=== PATIENT | male | born 1985 | race Caucasian/White ===

== ENCOUNTER 2017-01-12 00:43 | Emergency (ER) | payer MEDICAID | END 2017-01-12 02:10 | disposition home or self-care (01) | LOC: D.ER 00:43 | DX: S40.022A Contusion of left upper arm, initial encounter (principal); V09.9XXA Pedestrian injured in unspecified transport accident, initial encounter; Y93.89 Activity, other specified; Y92.89 Other specified places as the place of occurrence of the external cause; S63.502A Unspecified sprain of left wrist, initial encounter; S29.012A Strain of muscle and tendon of back wall of thorax, initial encounter; F32.9 Major depressive disorder, single episode, unspecified; J45.909 Unspecified asthma, uncomplicated; M54.2 Cervicalgia ==

== ENCOUNTER 2017-01-24 17:35 | Emergency (ER) | payer MEDICAID | END 2017-01-24 21:35 | disposition home or self-care (01) | LOC: D.ER 17:35 | DX: M25.571 Pain in right ankle and joints of right foot (principal); M25.531 Pain in right wrist; F17.200 Nicotine dependence, unspecified, uncomplicated ==

== ENCOUNTER 2017-04-08 21:42 | Emergency (ER) | payer MEDICAID | END 2017-04-09 00:17 | disposition home or self-care (01) | LOC: D.ER 21:42 | DX: H66.91 Otitis media, unspecified, right ear (principal); R09.89 Other specified symptoms and signs involving the circulatory and respiratory systems; R51 Headache; R09.82 Postnasal drip; J34.89 Other specified disorders of nose and nasal sinuses; F17.200 Nicotine dependence, unspecified, uncomplicated ==

== ENCOUNTER 2017-06-17 19:16 | Emergency (ER) | payer MEDICAID | END 2017-06-17 22:10 | disposition home or self-care (01) | LOC: D.ER 19:16 | DX: J03.90 Acute tonsillitis, unspecified (principal); F17.200 Nicotine dependence, unspecified, uncomplicated ==

== ENCOUNTER 2019-05-07 15:14 | Emergency (ER) | payer OTHER ==
[~2019-05-07] VITALS: Ht 185.4 cm; Wt 115.9 kg
[2019-05-07 15:36] VITALS: Ht 185.4 cm; Wt 115.9 kg
[2019-05-07] MEDS ORDERED: TESSALON PERLE100 MG PO (15:37)
[2019-05-07] MEDS ORDERED: ALBUTEROL SULF8.5 GM INH (15:38)
[2019-05-07] MEDS ORDERED: PREDNISONE10 MG PO (15:38)
[2019-05-07] MEDS ORDERED: PROMETHAZINE W473 ML PO (15:39)
[2019-05-07] MEDS ORDERED: ERYTHROCIN STE250 MG PO (15:39)
[2019-05-07 16:12] LABS: HEMATOCRIT 45.9 % (42.0-54.0); HEMOGLOBIN 16.3 g/dL (13.5-17.5); MCH 30.5 pg (26.0-34.0); MCHC 35.5 g/dL (31.0-37.0); MCV 85.8 fL (80.0-100.0); PLATELET COUNT 266 10x3/uL (130-400); RBC 5.35 10x6/uL (4.20-6.10); RDW 13.2 % (11.5-14.5); WBC 23.6 10x3/uL (4.8-10.8)
[2019-05-07 16:25] LABS: ALBUMIN 3.8 g/dL (3.4-5.0); ANION GAP 17.7 mmol/L (8-16); BILIRUBIN - TOTAL 0.27 mg/dL (0.2-1.3); CALCIUM 9.2 mg/dL (8.5-10.1); CARBON DIOXIDE 21.3 mmol/L (21.0-32.0); CREATININE - SERUM 1.4 mg/dL (0.6-1.3); MAGNESIUM - SERUM 2.3 mg/dL (1.8-2.4); PROTEIN - SERUM 7.9 g/dL (6.4-8.2)
[2019-05-07 16:38] LABS: LYMPHOCYTES 5 % (15-50); MONOCYTES 4 % (2-11); NEUTROPHILS 91 % (40-80); PLATELET ESTIMATE NORMAL
[2019-05-07 16:39] LABS: ROULEAUX OCC; TEAR DROP CELLS 1+
[2019-05-07 18:25] LABS: APPEARANCE CLEAR (CLEAR); BILIRUBIN NEGATIVE (NEGATIVE); COLOR YELLOW (YELLOW); GLUCOSE NEGATIVE (NEGATIVE); KETONE NEGATIVE (NEGATIVE); NITRITE NEGATIVE (NEGATIVE); PROTEIN TRACE mg/dL (NEGATIVE); UROBILINOGEN NORMAL (NORMAL)
[2019-05-07 18:27] LABS: BACTERIA FEW /hpf (NONE SEEN); MUCUS <1+ /lpf (NONE SEEN); RED CELLS - URINE 0-5 /hpf (0-5); WHITE CELLS - URINE 0-5 /hpf (0-5)
[2019-05-07 18:44] LABS: UDS - AMPHET NEGATIVE QUAL (NEGATIVE); UDS - BARB NEGATIVE QUAL (NEGATIVE); UDS - BENZO NEGATIVE QUAL (NEGATIVE); UDS - COCAINE NEGATIVE QUAL (NEGATIVE); UDS - OPIATE NEGATIVE QUAL (NEGATIVE); UDS - PCP NEGATIVE QUAL (NEGATIVE); UDS - THC POSITIVE QUAL (NEGATIVE)
[2019-05-07] MEDS ORDERED: BUPROPION HCL75 MG PO (18:59)
[2019-05-07 21:36] VITALS: BP 125/85
[2019-05-12 16:08] LABS: CHLAMYDIA TRACHOMATIS, NAA Negative (Negative)
== END 2019-05-07 23:42 | disposition home or self-care (01) ==
LOC: D.ER 15:14
PROVIDERS: Family Medicine
DX: J01.90 Acute sinusitis, unspecified (principal); J06.9 Acute upper respiratory infection, unspecified

== ENCOUNTER 2019-05-14 09:36 | Emergency (ER) | payer OTHER ==
[~2019-05-14] VITALS: Ht 185.4 cm; Wt 115.9 kg
[~2019-05-14 09:36] MED LIST: ALBUTEROL SULF8.5 GM INH; BUPROPION HCL75 MG PO; ERYTHROCIN STE250 MG PO; PREDNISONE10 MG PO; PROMETHAZINE W473 ML PO; TESSALON PERLE100 MG PO
[2019-05-14 09:42] VITALS: Ht 185.4 cm; Wt 115.9 kg
[2019-05-14 10:30] LABS: ALBUMIN 3.8 g/dL (3.4-5.0); ALKALINE PHOSPHATASE 89 U/L (46-116); ALT (SGPT) 55 U/L (10-68); BILIRUBIN - TOTAL 0.58 mg/dL (0.2-1.3); CALC OSMOLALITY 274 mosm/kg (275-300); CALCIUM 8.8 mg/dL (8.5-10.1); CARBON DIOXIDE 25.2 mmol/L (21.0-32.0); CHLORIDE - SERUM 105 mmol/L (98-107); CREATININE - SERUM 1.1 mg/dL (0.6-1.3); GLUCOSE 101 mg/dL (74-106); PROTEIN - SERUM 7.4 g/dL (6.4-8.2); SODIUM 138 mmol/L (136-145); UREA NITROGEN 10 mg/dL (7-18); eGFR NON AFRICAN AMERICAN 81 mL/min (90-120)
[2019-05-14 11:06] LABS: BASOPHILS 0.2 % (0-2); EOSINOPHILS 2.6 % (0-7); HEMATOCRIT 45.9 % (42.0-54.0); HEMOGLOBIN 16.2 g/dL (13.5-17.5); IMMATURE GRANULOCYTES 0.3 % (0-5); LYMPHOCYTES 25.5 % (15-50); MCH 30.5 pg (26.0-34.0); MCHC 35.3 g/dL (31.0-37.0); MCV 86.4 fL (80.0-100.0); MEAN PLATELET VOLUME 9.6 fL (7.4-10.4); NEUTROPHILS 60.4 % (40-80); PLATELET COUNT 217 10x3/uL (130-400); RBC 5.31 10x6/uL (4.20-6.10); RDW 13.6 % (11.5-14.5); WBC 6.5 10x3/uL (4.8-10.8)
[2019-05-14] MEDS ORDERED: TESSALON PERLE100 MG PO (11:39)
[2019-05-14] MEDS ORDERED: FLUTICASONE PRO16 GM NASAL (11:40)
[2019-05-14 12:06] VITALS: BP 139/85
== END 2019-05-14 12:09 | disposition home or self-care (01) ==
LOC: D.ER 09:36
PROVIDERS: Family Medicine
DX: J01.90 Acute sinusitis, unspecified (principal)

== ENCOUNTER 2019-05-27 12:32 | Emergency (ER) | payer SELFPAY ==
[~2019-05-27] VITALS: Ht 185.4 cm; Wt 115.9 kg
[~2019-05-27 12:32] MED LIST changes: +FLUTICASONE PRO16 GM NASAL
[2019-05-27 12:39] VITALS: Ht 185.4 cm; Wt 115.9 kg
[2019-05-27 13:41] LABS: BASOPHILS 0.4 % (0-2); EOSINOPHILS 4.6 % (0-7); HEMATOCRIT 46.8 % (42.0-54.0); HEMOGLOBIN 16.3 g/dL (13.5-17.5); LYMPHOCYTES 24.3 % (15-50); MCH 30.8 pg (26.0-34.0); MCHC 34.8 g/dL (31.0-37.0); MCV 88.5 fL (80.0-100.0); MEAN PLATELET VOLUME 9.3 fL (7.4-10.4); NEUTROPHILS 59.7 % (40-80); PLATELET COUNT 211 10x3/uL (130-400); RBC 5.29 10x6/uL (4.20-6.10); RDW 13.7 % (11.5-14.5); WBC 5.5 10x3/uL (4.8-10.8)
[2019-05-27 14:02] LABS: ALBUMIN 4.1 g/dL (3.4-5.0); ANION GAP 12.6 mmol/L (8-16); BILIRUBIN - TOTAL 0.32 mg/dL (0.2-1.3); CALCIUM 9.2 mg/dL (8.5-10.1); CARBON DIOXIDE 26.5 mmol/L (21.0-32.0); CREATININE - SERUM 1.2 mg/dL (0.6-1.3); POTASSIUM - SERUM 4.1 mmol/L (3.5-5.1); PROTEIN - SERUM 7.6 g/dL (6.4-8.2)
[2019-05-27] MEDS ORDERED: FLUTICASONE PRO16 GM NASAL (15:16)
[2019-05-27] MEDS ORDERED: ZANAFLEX4 MG PO (15:16)
[2019-05-27] MEDS ORDERED: VOLTAREN75 MG PO (15:16)
[2019-05-27] MEDS ORDERED: ZYRTEC10 MG PO (15:16)
[2019-05-27 16:22] VITALS: BP 130/87
== END 2019-05-27 15:35 | disposition home or self-care (01) ==
LOC: D.ER 12:32
PROVIDERS: Emergency Medicine
DX: J30.9 Allergic rhinitis, unspecified (principal); R05 Cough

== ENCOUNTER 2019-06-16 16:48 | Emergency (ER) | payer SELFPAY ==
[~2019-06-16] VITALS: Ht 185.4 cm; Wt 113.0 kg
[~2019-06-16 16:48] MED LIST changes: +VOLTAREN75 MG PO; +ZANAFLEX4 MG PO; +ZYRTEC10 MG PO
[2019-06-16 16:57] VITALS: Ht 185.4 cm; Wt 113.0 kg
[2019-06-16] MEDS ORDERED: ZANAFLEX4 MG PO (17:57)
[2019-06-16] MEDS ORDERED: ALBUTEROL SULF8.5 GM INH (17:58)
[2019-06-16 18:27] VITALS: BP 120/85
== END 2019-06-16 18:28 | disposition home or self-care (01) ==
LOC: D.ER 16:48
DX: R05 Cough (principal); J30.9 Allergic rhinitis, unspecified

== ENCOUNTER 2019-08-22 11:02 | Emergency (ER) | payer MEDICAID ==
[~2019-08-22] VITALS: Ht 185.4 cm; Wt 102.3 kg
[2019-08-22 11:05] VITALS: Ht 185.4 cm; Wt 102.3 kg
[2019-08-22 12:03] LABS: APPEARANCE CLEAR (CLEAR); BILIRUBIN NEGATIVE (NEGATIVE); COLOR YELLOW (YELLOW); GLUCOSE NEGATIVE (NEGATIVE); KETONE NEGATIVE (NEGATIVE); NITRITE NEGATIVE (NEGATIVE); PROTEIN NEGATIVE (NEGATIVE); UROBILINOGEN NORMAL (NORMAL)
[2019-08-22 12:12] LABS: BASOPHILS 0.2 % (0-2); EOSINOPHILS 2.8 % (0-7); HEMATOCRIT 50.7 % (42.0-54.0); HEMOGLOBIN 17.2 g/dL (13.5-17.5); IMMATURE GRANULOCYTES 0.4 % (0-5); LYMPHOCYTES 8.5 % (15-50); MCH 30.9 pg (26.0-34.0); MCHC 33.9 g/dL (31.0-37.0); MCV 91.2 fL (80.0-100.0); MONOCYTES 7.2 % (2-11); NEUTROPHILS 80.9 % (40-80); RBC 5.56 10x6/uL (4.20-6.10); WBC 16.6 10x3/uL (4.8-10.8)
[2019-08-22 12:14] LABS: PLATELET COUNT 138 10x3/uL (130-400)
[2019-08-22 12:14] LABS: UDS - AMPHET NEGATIVE QUAL (NEGATIVE); UDS - BARB NEGATIVE QUAL (NEGATIVE); UDS - BENZO NEGATIVE QUAL (NEGATIVE); UDS - COCAINE NEGATIVE QUAL (NEGATIVE); UDS - OPIATE NEGATIVE QUAL (NEGATIVE); UDS - PCP NEGATIVE QUAL (NEGATIVE); UDS - THC POSITIVE QUAL (NEGATIVE)
[2019-08-22 12:22] LABS: CALC OSMOLALITY 276 mosm/kg (275-300); CALCIUM 8.9 mg/dL (8.5-10.1); CARBON DIOXIDE 23.2 mmol/L (21.0-32.0); CHLORIDE - SERUM 103 mmol/L (98-107); CREATININE - SERUM 0.9 mg/dL (0.6-1.3); GLUCOSE 109 mg/dL (74-106); SODIUM 139 mmol/L (136-145); UREA NITROGEN 8 mg/dL (7-18); eGFR NON AFRICAN AMERICAN > 90 mL/min (90-120)
[2019-08-22 12:28] LABS: ALBUMIN 3.5 g/dL (3.4-5.0); ALKALINE PHOSPHATASE 97 U/L (46-116); ALT (SGPT) 29 U/L (10-68); BILIRUBIN - TOTAL 0.57 mg/dL (0.2-1.3); MAGNESIUM - SERUM 2.1 mg/dL (1.8-2.4); PROTEIN - SERUM 7.1 g/dL (6.4-8.2)
--- NOTE | 2019-08-22 14:09 | NUR ---
DR. VENCES NOTIFIED AND SITTER ORDERED. SITTER AT BEDSIDE. NOTIFIED CHARGE NURSE AND ATTENDING IN REGARDS TO ASSESSMENT FINDINGS. RESOURCES GIVEN TO PT. AND SAFETY PLAN INITIATED.
[2019-08-22 17:33] VITALS: BP 122/88
== END 2019-08-22 19:35 ==
LOC: D.ER 11:02
PROVIDERS: Emergency Medicine
DX: F31.89 Other bipolar disorder (principal); I10 Essential (primary) hypertension; Z72.0 Tobacco use; J45.909 Unspecified asthma, uncomplicated

== ENCOUNTER 2019-08-30 00:59 | Emergency (ER) | payer MEDICAID ==
[~2019-08-30] VITALS: Ht 185.4 cm; Wt 104.5 kg
[2019-08-30 01:13] VITALS: Ht 185.4 cm; Wt 104.5 kg
[2019-08-30 01:33] LABS: BASOPHILS 0.5 % (0-2); HEMATOCRIT 47.5 % (42.0-54.0); HEMOGLOBIN 16.2 g/dL (13.5-17.5); IMMATURE GRANULOCYTES 0.1 % (0-5); LYMPHOCYTES 21.1 % (15-50); MCH 30.6 pg (26.0-34.0); MCHC 34.1 g/dL (31.0-37.0); MCV 89.6 fL (80.0-100.0); MEAN PLATELET VOLUME 9.2 fL (7.4-10.4); MONOCYTES 10.5 % (2-11); NEUTROPHILS 54.8 % (40-80); RDW 12.7 % (11.5-14.5); WBC 7.8 10x3/uL (4.8-10.8)
[2019-08-30 01:37] LABS: PLATELET COUNT 320 10x3/uL (130-400)
[2019-08-30 01:42] LABS: CALC OSMOLALITY 279 mosm/kg (275-300); CALCIUM 9.2 mg/dL (8.5-10.1); CARBON DIOXIDE 25.6 mmol/L (21.0-32.0); CHLORIDE - SERUM 104 mmol/L (98-107); GLUCOSE 106 mg/dL (74-106); POTASSIUM - SERUM 3.6 mmol/L (3.5-5.1); SODIUM 141 mmol/L (136-145); UREA NITROGEN 10 mg/dL (7-18); eGFR NON AFRICAN AMERICAN 90 mL/min (90-120)
[2019-08-30 01:48] LABS: ALBUMIN 3.9 g/dL (3.4-5.0); ALKALINE PHOSPHATASE 104 U/L (46-116); ALT (SGPT) 32 U/L (10-68); BILIRUBIN - TOTAL 0.48 mg/dL (0.2-1.3); PROTEIN - SERUM 7.5 g/dL (6.4-8.2)
--- NOTE | 2019-08-30 03:29 | NUR ---
DR VENCES NOTIFIED AND SITTER ORDERED. SITTER AT BEDSIDE. NOTIFIED CHARGE NURSE AND ATTENDING IN REGARDS TO ASSESSMENT. RESOURCES GIVEN TO PT AND SAFETY PLAN INITIATED.
[2019-08-30 03:43] LABS: APPEARANCE CLEAR (CLEAR); BILIRUBIN NEGATIVE (NEGATIVE); COLOR YELLOW (YELLOW); GLUCOSE NEGATIVE (NEGATIVE); KETONE LARGE mg/dL (NEGATIVE); NITRITE NEGATIVE (NEGATIVE); PROTEIN NEGATIVE (NEGATIVE); SPECIFIC GRAVITY 1.015 (1.005-1.020); UROBILINOGEN NORMAL (NORMAL)
[2019-08-30 03:50] LABS: UDS - AMPHET NEGATIVE QUAL (NEGATIVE); UDS - BARB NEGATIVE QUAL (NEGATIVE); UDS - BENZO NEGATIVE QUAL (NEGATIVE); UDS - COCAINE NEGATIVE QUAL (NEGATIVE); UDS - OPIATE NEGATIVE QUAL (NEGATIVE); UDS - PCP NEGATIVE QUAL (NEGATIVE); UDS - THC POSITIVE QUAL (NEGATIVE)
[2019-08-30 11:09] VITALS: BP 149/90
== END 2019-08-30 15:09 ==
LOC: D.ER 00:59
PROVIDERS: Emergency Medicine
DX: F31.89 Other bipolar disorder (principal); R45.851 Suicidal ideations; I10 Essential (primary) hypertension; J45.909 Unspecified asthma, uncomplicated; Z72.0 Tobacco use

== ENCOUNTER 2021-02-04 23:54 | Emergency (ER) | payer OTHER ==
[~2021-02-04] VITALS: Ht 185.4 cm; Wt 100.0 kg
[2021-02-04 23:57] VITALS: BP 129/94; Ht 185.4 cm; Wt 100.0 kg
== END 2021-02-05 01:32 | disposition home or self-care (01) ==
LOC: D.ER 23:54
DX: S63.502A Unspecified sprain of left wrist, initial encounter (principal); I10 Essential (primary) hypertension; M25.532 Pain in left wrist; X58.XXXA Exposure to other specified factors, initial encounter